=== PATIENT | female | born 1990 | race Caucasian/White ===

== ENCOUNTER 2022-06-20 15:20 | Observation (INO) | payer MEDICAID, SELFPAY ==
[2022-06-20 15:30] VITALS: BP 122/79; PULSE 85; RESP 16; TEMP 36.5; O2SAT 97
[2022-06-20 15:43] VITALS: BMI 24.5
[2022-06-20] MEDS: Gabapentin 300 MG Capsule PO (18:13)
[2022-06-20] MEDS: Dicyclomine 10 MG Capsule 20 MG PO (18:13)
[2022-06-20] MEDS: cloNIDine HCl 0.1 MG Tablet PO (18:14)
[2022-06-20] MEDS: Methocarbamol 750 MG Tablet 1500 MG PO (18:14)
[2022-06-20] MEDS: Buprenorphine HCl 2 MG TAB.SUBL SL (20:00)
--- NOTE | 2022-06-20 20:31 | HP.PCM.HOS_ITS ---
HPI - General General Date of Admission: 06/20/22 HPI Narrative THERON MARINELLI, is a 31 F who presents to the hospital as a direct admission for detox. She crushes oxycodone and snorts it as well as OxyContin. She says that she started doing this about 5 years ago and she is try to get her to self clean multiple times but struggles due to the symptoms of withdrawal. She states that she had been prescribed oxycodone previously during her and then the of her first child, she has 2 children. Part of her desire to get clean is the fact that she does not have custody of her children anymore. She does also endorse a mental health history and states that she used to be on Zoloft but that this was unhelpful. She was cleared from a psychiatric standpoint at the outside hospital secondary to suicidal ideation, she still endorses having periods of suicidal ideation though she does not have a plan she states that it is more a feeling of apathy and that occasionally she just wishes she were not alive but she denies any active plan for suicide. Also at the outside hospital she endorses pelvic pain and CBC demonstrated a leukocytosis of 13.4, she also endorses some pelvic pain, and had a UA with positive nitrites and 2+ bacteria. [facility] Medical History (Updated 06/20/22 @ 20:[address] Merritt Osuna MD) Abnormal Pap smear of cervix Anxiety delivery delivered (~02/17/20) Depression Hepatitis Allergy/AdvReac Type Severity Reaction Status Date / Time No Known Allergies Allergy Verified 06/20/22 15:38 Family History (Updated 06/20/22 @ 15:56 by Tanya Dyer) Father Prostate cancer Aunt Breast cancer Surgical History H/O dilation and curettage Social History adopted: No household members: other housing: other number of children: 2 current occupational status: unemployed pets and animals: Yes (Dog, Rabbit, Snake ) history of recent travel: No sexually active: Yes do you think of yourself as: straight/heterosexual current gender identity: female Smoking Status: Current every day smoker tobacco type: e-cigarettes Electronic Cigarette Use: with nicotine ROS Constitutional Constitutional: Denies chills, fatigue, fever(s) or malaise Eyes Eyes: Denies blurry vision ENT HEENT: Denies headache(s) or nasal discharge Cardiovascular Cardiovascular: Denies chest pain, dyspnea on exertion or syncope Respiratory/Chest Respiratory/Chest: Denies cough, shortness of breath at rest or shortness of breath with exertion Gastrointestinal Gastrointestinal: Denies constipation, diarrhea, nausea or vomiting Genitourinary Genitourinary: Denies dysuria Neurologic Neurologic: Denies focal weakness, numbness or tremor(s) Psychiatric Psychiatric: Reports anxiety, depression and suicidal ideation; Denies homicidal ideation Vital Signs Vital Signs Vital Signs: 06/20/22 15:30 Temperature 97.7 F L Temperature Source Oral Pulse Rate 85 Respiratory Rate 16 Blood Pressure 122/79 H Blood Pressure Mean 93 Blood Pressure Source Monitor Blood Pressure Position Semi-Fowlers Blood Pressure Location Right Arm Pulse Ox 97 Oxygen Delivery Method Room Air Weight Weight: 129 lb 11.2 oz Body Mass Index (BMI) 24.5 Physical Exam Narrative General: Alert, Oriented x3, Cooperative, No apparent distress HEENT: Atraumatic, PERRLA, EOMI, Normocephalic Oral: Moist Mucosa Neck: Supple, No JVD Lungs: Clear to auscultation, Normal air movement, No rhonchi, No wheeze, No rales Cardiovascular: Regular rate, Regular Rhythm, Normal S1, Normal S2, No murmurs Abdomen: Soft, Non Tender, Non-Distended, No Hepato-splenomegaly Extremities: No edema, Capillary Refill Less than 3 Seconds Skin: No rashes, No breakdown Musculoskeletal: No Tenderness to Palpation of Joints or Extremities Neurological: Cranial nerves II-XII grossly intact, Motor Exam 5/5 strength throughout, Sensory exam intact to light touch and pain Psych/Mental Status: Flat, anxious, restless Assessment & Plan Assessment/Plan (1) Opiate withdrawal: PLAN: Plan 1. Opiate withdrawal/tobacco abuse/marijuana use ? We will continue with the opiate withdrawal protocol, I did have extensive conversations with her on mental health and her suicidal ideation ? 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 There is a family history of drug use and her father currently smokes medical marijuana for prostate cancer ? We will have her follow-up with 180, she is from [place]. ? She was on Zoloft as an outpatient but does not think that it was doing much help, she stopped taking it about a year ago ? We will provide her nicotine patch, did discuss cessation 2. UTI ? We will provide her with p.o. Keflex 500 mg 3 times daily ? Her UA was positive at an outside hospital, urine culture is pending here though may be negative since she did receive antibiotics at her first ER DVT: Ambulation 75 minutes was spent on direct patient care as well as chart review and collaboration with colleagues Charges/Coding Visit Charges Inpatient E&M: 58244 Init Hosp L3
[2022-06-20 21:31] VITALS: BP 95/59; PULSE 77; RESP 14; TEMP 36.8; O2SAT 99
[2022-06-20] MEDS: Cephalexin 500 MG Capsule PO (21:33)
[2022-06-21 05:00] VITALS: BP 104/67; PULSE 63; RESP 16; TEMP 37.1; O2SAT 98
[2022-06-21] MEDS: Buprenorphine HCl 2 MG TAB.SUBL SL ×3 (05:04→20:03)
[2022-06-21] MEDS: Methocarbamol 750 MG Tablet 1500 MG PO ×2 (05:04→14:02)
[2022-06-21] MEDS: hydrOXYzine PAM 25 MG Capsule 50 MG PO ×2 (05:04→17:43)
[2022-06-21] MEDS: Cephalexin 500 MG Capsule PO ×3 (05:04→20:04)
--- NOTE | 2022-06-21 07:47 | PN.HOSP_ITS ---
Reason for Visit Reason for Visit: Request for opiate detox Subjective Subjective Patient is a 31-year-old white female who presents emergency department [facility] on 06/20/2022 requesting opiate detox. She indicated she crushes oxycodone and OxyContin and uses intranasally. She started doing this about 5 years ago and has had multiple attempts at sobriety but has struggled due to symptoms of withdrawal. She became addicted when she was prescribed oxycodone after her at the of her first child. She now has 2 children. She states she wants to obtain sobriety to get custody back of her children. She also indicated that she had suicidal ideation but did not have a plan or any intent she just had more feelings of apathy and that occasionally she just was so she were not alive. She was seen in outside hospital and cl eared from a psychiatric standpoint but referred here for addiction management. She is admitted to the medical floor and started on a Subutex taper per [facility] protocol. Her UA also was indicative of urinary tract infection and patient was symptomatic so she was started on antibiotics for this. Cultures are pending. Patient states she is overall feeling okay today. No chills, no nausea, vomiting, but she states she does feel little bit anxious intermittently. She does not know if that is her underlying anxiety or withdrawal related symptoms. I did discuss with her there are symptoms control medications available and asked them if needed. She does indicate she would like to go to an inpatient facility at the time of discharge as she hopes that her success rate will be higher if she does so. She states she has no suicidal plan but has had ideology previously which was most intense shortly after she lost her children secondary to her drug use. Objective Data Objective Data Vital Signs: Vital Signs Temp Pulse Resp BP Pulse Ox O2 Del Method 98.7 F 63 16 104/67 98 Room Air 06/21/22 05:00 06/21/22 05:00 06/21/22 05:00 06/21/22 05:00 06/21/22 05:00 06/21/22 05:00 Oxygen Delivery Method Room Air Weight: 58.831 kg Body Mass Index (BMI) 24.5 Physical Exam Const alert, oriented x3, no apparent distress, average body habitus and well nourished Constitutional Narrative: Very pleasant, young, white female, sitting in bed, appears comfortable and nontoxic HEENT head/scalp atraumatic and moist oral mucous membranes Head and Scalp: normocephalic Resp normal respiratory effort, no retractions, no use of accessory muscles and clear to auscultation bilaterally Auscultation: Negative for rales, rhonchi or wheezes Cardio regular rate, regular rhythm, S1 normal heart sound, S2 normal heart sound, no murmurs, no rub, no gallops and no clicks GI normal to inspection, nondistended, normoactive bowel sounds and soft to palpation Extremity no clubbing, cyanosis or edema Neuro oriented x3, moves all extremities and no focal motor deficits Speech: speech normal Psych affect normal Mood & Affect: anxious Assessment & Plan Assessment/Plan (1) UTI (urinary tract infection): (2) Opiate withdrawal: PLAN: Plan Acute opiate withdrawal -Patient using intranasally street purchased prescription medications -Buprenorphine taper per [facility] protocol -Supportive medication for symptom relief -180 consultation to address follow-up after discharge -Patient indicated on admission that she would prefer outpatient rehab if possible discharge UTI -UA is indicative of infection -Cultures pending however she was given a dose of antibiotics before culture obtained -Continue Keflex 500 3 times daily for total of 3 days treatment as this is an uncomplicated UTI Polysubstance abuse -Patient also uses marijuana -Recommend cessation Tobacco abuse -Recommend cessation -Nicotine replacement available DVT prophylaxis -Low risk -Early ambulation encouraged CODE STATUS -Full code Charges/Coding Visit Charges Inpatient E&M: 30944 Subs Hosp L2
[2022-06-21] MEDS: Gabapentin 300 MG Capsule PO (09:38)
[2022-06-21 11:00] VITALS: BP 101/59; PULSE 85; RESP 16; TEMP 37.1; O2SAT 100
--- NOTE | 2022-06-21 13:33 | ADDICTION ---
This promotion writer met with PT to conduct ASAM, MSE, AUDIT, DUDIT assessments and to plan for d/c. PT A+Ox4 and participated actively. All assessments completed and placed in PT's chart. PT plans to f/u with [facility] for follow-up in patient treatment services on Friday. [facility] will transport to treatment.
[2022-06-21] MEDS: cloNIDine HCl 0.1 MG Tablet PO (14:02)
[2022-06-21 16:28] VITALS: BP 104/67; PULSE 84; RESP 16; TEMP 36.8; O2SAT 100
[2022-06-21] MEDS: Dicyclomine 10 MG Capsule 20 MG PO (17:43)
[2022-06-21] MEDS: traZODone 100 MG Tablet PO (20:06)
[2022-06-21 20:11] VITALS: BP 101/59; PULSE 65; RESP 16; TEMP 37.1; O2SAT 99
[2022-06-22] MEDS: Cephalexin 500 MG Capsule PO ×3 (04:12→20:19)
[2022-06-22] MEDS: Buprenorphine HCl 2 MG TAB.SUBL SL ×3 (04:12→20:11)
[2022-06-22] MEDS: Methocarbamol 750 MG Tablet 1500 MG PO ×2 (04:15→20:33)
[2022-06-22 04:17] VITALS: BP 105/55; PULSE 68; RESP 16; TEMP 36.9; O2SAT 98
[2022-06-22] MEDS: Ondansetron 8 MG Tablet PO (09:02)
[2022-06-22 09:08] VITALS: BP 95/58; PULSE 81; RESP 16; TEMP 36.6; O2SAT 99
[2022-06-22 09:10] VITALS: PULSE 80
[2022-06-22] MEDS: Gabapentin 300 MG Capsule PO (09:20)
--- NOTE | 2022-06-22 13:02 | PCM.PN.HOSP ---
Reason for Visit Reason for Visit: Opiate detox Subjective Subjective No issues overnight. Patient is feeling okay overall. Some anxiety intermittently. No diarrhea, nausea or vomiting. No piloerection. Urinary symptoms have improved Objective Data Objective Data Vital Signs: Vital Signs Temp Pulse Resp BP Pulse Ox O2 Del Method 97.8 F 80 16 95/58 L 99 Room Air 06/22/22 09:08 06/22/22 09:10 06/22/22 09:08 06/22/22 09:08 06/22/22 09:08 06/22/22 09:08 Oxygen Delivery Method Room Air Weight: 58.831 kg Body Mass Index (BMI) 24.5 Intake & Output: Intake and Output for Last 24 Hours 06/20/22 06/21/22 06/22/22 23:59 23:59 23:59 Intake Total 400 / 400 400 / 400 Balance 400 / 400 400 / 400 Lab / Micro Data Micro: Microbiology 06/20/22 18:15 Urine, Clean Catch Urine Culture - Final Culture exhibits no growth. Physical Exam Const alert, oriented x3, no apparent distress, average body habitus and well nourished Constitutional Narrative: Very pleasant, young, white female, sitting in bed, appears comfortable and nontoxic Resp Auscultation: Negative for rales, rhonchi or wheezes Neuro oriented x3, moves all extremities and no focal motor deficits Speech: speech normal Psych affect normal Psych Narrative: Appears less anxious today Assessment & Plan Assessment/Plan (1) UTI (urinary tract infection): (2) Opiate withdrawal: PLAN: Plan Acute opiate withdrawal -Patient using intranasally street purchased prescription medications -Buprenorphine taper per [facility] protocol -Supportive medication for symptom relief -180 consultation to address follow-up after discharge -Patient indicated on admission that she would prefer outpatient rehab if possible discharge UTI -UA is indicative of infection -Cultures pending however she was given a dose of antibiotics before culture obtained -Continue Keflex 500 3 times daily for total of 3 days treatment as this is an uncomplicated UTI Polysubstance abuse -Patient also uses marijuana -Recommend cessation Tobacco abuse -Recommend cessation -Nicotine replacement available DVT prophylaxis -Low risk -Early ambulation encouraged CODE STATUS -Full code Charges/Coding Visit Charges Inpatient E&M: 68711 Subs Hosp L1
[2022-06-22 15:02] VITALS: BP 96/53; PULSE 86; RESP 16; TEMP 36.8; O2SAT 98
[2022-06-22] MEDS: traZODone 100 MG Tablet PO (20:11)
[2022-06-22 20:19] VITALS: BP 108/72; PULSE 86; RESP 16; TEMP 36.6; O2SAT 99
[2022-06-22] MEDS: Dicyclomine 10 MG Capsule 20 MG PO (20:33)
[2022-06-23] MEDS: Cephalexin 500 MG Capsule PO ×3 (05:42→20:36)
[2022-06-23 05:43] VITALS: BP 94/67; PULSE 78; RESP 16; TEMP 36.6; O2SAT 98
[2022-06-23] MEDS: Buprenorphine HCl 2 MG TAB.SUBL SL (07:51)
[2022-06-23] MEDS: Pantoprazole Sodium 40 MG Tablet PO (09:03)
[2022-06-23] MEDS: Acetaminophen 500 MG Tablet 1000 MG PO ×2 (09:03→20:43)
[2022-06-23] MEDS: Polyethylene Glycol 3350 17 GM PACKET PO ×2 (09:03→20:44)
[2022-06-23] MEDS: Dicyclomine 10 MG Capsule 20 MG PO (09:08)
[2022-06-23] MEDS: hydrOXYzine PAM 25 MG Capsule 50 MG PO (09:08)
[2022-06-23] MEDS: Gabapentin 300 MG Capsule PO (09:08)
--- NOTE | 2022-06-23 10:49 | PCM.PN.HOSP ---
Reason for Visit Reason for Visit: Opiate detox Subjective Subjective Headache this morning but resolved with Tylenol. Feeling okay. Plan is for discharge tomorrow to inpatient rehab facility. Patient asks that her contact be notified that she is going to be discharged and where she will be discharged. Objective Data Objective Data Vital Signs: Vital Signs Temp Pulse Resp BP Pulse Ox O2 Del Method 98 F 78 16 94/67 98 Room Air 06/23/22 05:43 06/23/22 05:43 06/23/22 05:43 06/23/22 05:43 06/23/22 05:43 06/23/22 05:43 Oxygen Delivery Method Room Air Weight: 58.831 kg Body Mass Index (BMI) 24.5 Intake & Output: Intake and Output for Last 24 Hours 06/21/22 06/22/22 06/23/22 23:59 23:59 23:59 Intake Total 400 / 400 400 / 400 Balance 400 / 400 400 / 400 Lab / Micro Data Micro: Microbiology 06/20/22 18:15 Urine, Clean Catch Urine Culture - Final Culture exhibits no growth. Physical Exam Const alert, oriented x3, no apparent distress, average body habitus and well nourished Constitutional Narrative: Very pleasant, young, white female, sitting in bed, appears comfortable and nontoxic, watching television Neuro oriented x3, moves all extremities and no focal motor deficits Speech: speech normal Psych affect normal Psych Narrative: Calm, very pleasant Assessment & Plan Assessment/Plan (1) UTI (urinary tract infection): (2) Opiate withdrawal: (3) Constipation: PLAN: Plan Acute opiate withdrawal -Patient using intranasally street purchased prescription medications -Buprenorphine taper per [facility] protocol -Supportive medication for symptom relief -Plan is for discharge to inpatient rehab tomorrow at [facility] -Patient overall doing well UTI -UA is indicative of infection -Cultures pending however she was given a dose of antibiotics before culture obtained -Continue Keflex 500 3 times daily for total of 3 days treatment as this is an uncomplicated UTI -Treatment is completed after today Constipation -Start MiraLAX 17 g twice daily -Patient states she has not had a bowel movement in over 4 days Polysubstance abuse -Patient also uses marijuana -Recommend cessation Tobacco abuse -Recommend cessation -Nicotine replacement available DVT prophylaxis -Low risk -Early ambulation encouraged CODE STATUS -Full code Charges/Coding Visit Charges Inpatient E&M: 50739 Subs Hosp L1
[2022-06-23 13:37] VITALS: BP 97/63; PULSE 63; RESP 18; TEMP 36.9; O2SAT 99
[2022-06-23 18:00] VITALS: BP 95/64; PULSE 89; RESP 19; TEMP 37.2; O2SAT 99
[2022-06-23 20:29] VITALS: BP 96/61; PULSE 80; RESP 16; TEMP 36.8; O2SAT 100
[2022-06-23] MEDS: traZODone 100 MG Tablet PO (20:36)
[2022-06-23] MEDS: Methocarbamol 750 MG Tablet 1500 MG PO (20:36)
[2022-06-24 05:28] VITALS: BP 94/66; PULSE 88; RESP 16; TEMP 36.8; O2SAT 97
[2022-06-24] MEDS: Cephalexin 500 MG Capsule PO (05:31)
[2022-06-24] MEDS: Dicyclomine 10 MG Capsule 20 MG PO (05:39)
[2022-06-24] MEDS: Acetaminophen 500 MG Tablet 1000 MG PO (05:39)
[2022-06-24] MEDS: hydrOXYzine PAM 25 MG Capsule 50 MG PO (05:39)
[2022-06-24] MEDS: Methocarbamol 750 MG Tablet 1500 MG PO (05:39)
--- NOTE | 2022-06-24 08:20 | PCM.DC.SUM ---
Providers Date of Admission: 06/20/22 Date of Discharge: 06/24/22 Primary Care Physician: No Primary Care Phys Reason For Visit: OPIATE DETOX Diagnosis Discharge Diagnosis (1) UTI (urinary tract infection): Status: Acute Code(s): N39.0 - Urinary tract infection, site not specified (2) Opiate withdrawal: Status: Acute Code(s): F11.93 - Opioid use, unspecified with withdrawal (3) Constipation: Status: Acute Code(s): K59.00 - Constipation, unspecified Medications at Discharge Home Medications polyethylene glycol 3350 17 gram oral powder packet 17 g PO BID #30 ea 06/24/22 Hospital Course Operations None Procedures None Summary of Care Provided Minutes Spent on Discharge: 22 Hospital Course: Ms. Arzate is a 31-year-old white female who presented to the emergency department at [facility] on 06/20/2022 requesting opiate detox. She indicated she had been crushing oxycodone and OxyContin and using it intranasally. She started doing this about 5 years ago. She reported she had multiple attempts at sobriety but had struggled to remained sober due to withdrawal symptoms. She has 2 children and has lost custody of both children. She would like to get sober so she could work on getting custody back of her children. She had indicated at presentation that she had suicidal ideation previously especially when she initially lost her children but denied any plan and had been cleared from a psychiatric standpoint prior to being referred here for addiction management. Per my discussion with her she has no intent but does have feelings of apathy at times. She was admitted to the medical floor and started on a Subutex taper. Her UA on admission was suggestive of UTI and she was started on antibiotics initially. Cultures were obtained and eventually found negative and antibiotics were discontinued. She had some bouts of constipation during her hospital course for which we started MiraLAX. She was having flatus but no bowel movement at the time of discharge so we did continue the MiraLAX. Her withdrawal was overall uneventful. She was seen by addiction management and wanted to follow-up with inpatient as she felt she would be more successful that way. She was accepted at inpatient rehab at [facility] and transport was acquired for her on the a.m. of 06/24/2022. She was discharged in stable condition. Discharge diagnoses: Acute opiate withdrawal Intranasal opiate abuse UTI-ruled out Constipation Polysubstance abuse Tobacco abuse Physical Exam Const alert, oriented x3, no apparent distress, average body habitus and well nourished Constitutional Narrative: Very pleasant, young, white female, sitting in bed, appears comfortable and nontoxic, watching television General Appearance: cooperative, comfortable, well kempt and well developed Orientation / Consciousness: awake, oriented to person, oriented to place and oriented to time Exam Limitations: no limitations HEENT normocephalic, head/scalp atraumatic, hearing grossly normal bilaterally and moist oral mucous membranes HEENT Narrative: Dentition is good, Mallampati 2 Resp normal respiratory effort, no retractions, no use of accessory muscles and clear to auscultation bilaterally Auscultation: Negative for rales, rhonchi or wheezes Cardio regular rate, regular rhythm, S1 normal heart sound, S2 normal heart sound, no murmurs, no rub, no gallops and no clicks GI normal to inspection, nondistended, normoactive bowel sounds and soft to palpation Extremity no clubbing, cyanosis or edema Extremity Narrative: 2+ pedal pulses Neuro oriented x3, CN's II-XII intact bilaterally, moves all extremities and no focal motor deficits Speech: speech normal Psych affect normal Psych Narrative: Calm, very pleasant Weight / BMI Weight Weight: 58.831 kg Body Mass Index (BMI) 24.5 ABG / Lab / Microbiology Data Microbiology: Microbiology 06/20/22 18:15 Urine, Clean Catch Urine Culture - Final Culture exhibits no growth. D/C Instructions Discharge Diet: No restrictions Discharge Activity: Return to Normal Activity Meaningful Use Info Meaningful Use Diagnoses (Choose all that apply): None applicable Discharge Plan Admission Admit Date/Time: 06/20/22 15:20 Primary Reason for Your Visit: Opiate Detox Attending Provider: Mylene Johnson Primary Care Provider: Care Physician,No Primary Consulting Providers: Merritt Osuna Discharge Orders/Prescriptions Prescriptions: New polyethylene glycol 3350 17 gram Powder In Packet 17 g PO BID Qty: 30 0RF Rx Instructions: until you have a BM Referrals / Follow Up: Care Physician,No Primary [Primary Care Provider] - Disposition Disposition (needs filled in before D/C Order can be placed): Home, Self Care Charges/Coding Visit Charges Inpatient E&M: 60181 Disch Hosp
[2022-06-24 08:50] VITALS: BP 94/46; PULSE 70; RESP 18; TEMP 36.6; O2SAT 99
[2022-06-24] MEDS: Gabapentin 300 MG Capsule PO (08:50)
[2022-06-24] MEDS: Polyethylene Glycol 3350 17 GM PACKET PO (08:50)
[2022-06-24] MEDS: Pantoprazole Sodium 40 MG Tablet PO (08:50)
[2022-06-24] MEDS: Ondansetron 8 MG Tablet PO (08:50)
--- NOTE | 2022-06-24 09:19 | PHA.DC.MR ---
Pharmacy Service has performed discharge medication reconciliation for this patient. The patient's discharge medication list was reviewed for discrepancies and discrepancies were resolved. Home Medications polyethylene glycol 3350 17 gram oral powder packet 17 g PO BID #30 ea 06/24/22
== END 2022-06-24 10:21 | disposition home or self-care (01) ==
PROVIDERS: Admitting Provider Family Medicine; Visit Provider Internal Medicine
DX: F11.23 Opioid dependence with withdrawal (principal); F17.290 Nicotine dependence, other tobacco product, uncomplicated; F12.90 Cannabis use, unspecified, uncomplicated; K59.00 Constipation, unspecified; N39.0 Urinary tract infection, site not specified; F34.0 Cyclothymic disorder
CPT/HCPCS: 87086; 99406; H0012